=== PATIENT | female | born 1970 | race Caucasian/White ===

== ENCOUNTER 2019-10-15 11:44 | Emergency (ER) | payer OTHER, SELFPAY ==
[2019-10-15 11:56] VITALS: BP 165/110; PULSE 98; RESP 16; TEMP 37; O2SAT 99; BMI 27.4
--- NOTE | 2019-10-15 12:00 | XRR_ITS ---
PROCEDURE INFORMATION: Exam: XR Chest, 1 View Exam date and time: 10/15/2019 12:42 PM Age: 49 years old Clinical indication: Cough TECHNIQUE: Imaging protocol: XR of the chest Views: 1 view. COMPARISON: No relevant prior studies available. FINDINGS: Lungs: Unremarkable. No consolidation. Pleural space: Unremarkable. No pleural effusion. No pneumothorax. Heart/Mediastinum: Unremarkable. No cardiomegaly. Bones/joints: No acute findings. XR/XR chest 1V portable [id number] IMPRESSION: No acute findings.
--- NOTE | 2019-10-15 12:06 | W.ED.GENADLT ---
HPI - General Adult General: Chief complaint: General Medical Stated complaint: fever/sore throat/possible covid exposure Time Seen by Provider: 10/15/19 11:50 Source: patient Mode of arrival: ambulatory Limitations: no limitations History of Present Illness: HPI narrative: Ciera is a nice 49-year-old female who comes in complaining of sore throat, lip pain, cough and occasional shortness of breath. Patient has had a known direct exposure to the COVID-19 virus. She is had a fever at home as high as 101.2. She states her cough is dry nonproductive. She only rarely gets shortness of breath. Her symptoms have been going on for the past 3 to 4 days. Patient states the spot on her lip is sore and tender. It is located on the left lower lip on the lateral side. Patient states she also has a sore at the top of her mouth. Patient was exposed to herpes simplex virus as well at work. She denies any neck pain or stiffness although she has had a headache. She has no photophobia or phonophobia. She had nausea but no vomiting. She denies any diarrhea, rash or other complaints. Her exposure to the COVID-19 virus was her daughter who was exposed to someone who was confirmed to have the virus but her daughter has not not been confirmed to have the virus she only has the known exposure. Associated symptoms: Reports dyspnea; Deny chest pain, confusion, diaphoresis, headache(s), malaise, nausea, rash, palpitations, syncope or vomiting Review of Systems Const: Reports: fever(s); Denies: chills, body aches, fatigue, malaise or diaphoresis Eyes: Denies: change in vision, blurry vision, photophobia, eye discomfort, eye discharge or eye redness ENMT: Reports: throat pain and swelling of lips/tongue; Denies: odynophagia, hoarseness, ear or mastoid pain, ear discharge, change in hearing or nasal discharge Card: Denies: chest pain, palpitations, irregular heart rhythm, edema, lightheadedness, syncope, pre-syncope, dyspnea on exertion or orthopnea Resp: Reports: dyspnea and non-productive cough; Denies: productive cough, wheezing, hemoptysis or chest congestion GI: Denies: abdominal pain, nausea, vomiting, hematemesis, coffee ground emesis, heartburn, diarrhea, constipation, GI cramping, hematochezia or melena : Denies: flank pain, dysuria, urinary frequency, urinary urgency or hematuria Musc: Denies: neck pain, back pain, extremity pain, extremity swelling, joint pain, joint swelling, joint redness, joint warmth or joint stiffness Skin/Breast: Denies: rash, pruritus, erythema or skin tenderness Neuro: Denies: headache(s), numbness in extremities, weakness in extremities, sensory changes, lack of coordination, difficulty walking, dizziness, vertigo, confusion, Slurred speech present or seizure-like activity Rudolph/Lymph: Denies: easy bruising, easy bleeding, petechiae, purpura or enlarged lymph nodes All/Imm: Denies: urticaria, throat swelling, tongue swelling, facial swelling or acute wheezing PFSH ED PFSH: Medical History Hypothyroidism Surgical History Hx of breast augmentation Hx of section Family History Denies family history of Diabetes CAD (coronary artery disease) Clotting disorder Dementia Hyperlipidemia Psychiatric illness Chronic kidney disease (CKD) Suicide Anesthesia complication Bleeding disorder Family history of premature coronary artery disease Lung disease Cancer Hypertension Stroke Social History Smoking and tobacco status: never smoked Second hand smoke exposure: No Smoking risk assessment/counseling performed?: No Alcohol intake: current Alcohol intake frequency: holidays/special occasions only Desire information about alcohol rehabilitation?: No Counseling given: No Desire information about substance/drug rehabilitation?: No Counseling given: No Adopted: No Caregiver/support person: Yes Lives independently: Yes Household members: spouse Housing: House Marital status: Number of children: 2 Number of grandchildren: 2 Highest education level completed: Associate Degree: Occupational, Technical, Vocational Program service: No Current occupational status: employed Current occupational exposures/hazards: Yes Pets and animals: Yes History of recent travel: No Sexually active: Yes Current gender identity: Female Special isauro needs: No Agree to transfusion: Yes Physical Exam Const: COMMON NORMALS: no acute distress, patient oriented x3, no limitations, healthy appearing and well nourished GENERAL APPEARANCE: cooperative, well kempt and well developed HENMT: COMMON NORMALS: normocephalic, atraumatic, external ears normal, EAC's normal and Normal external nose present HEAD & SCALP: normal to inspection, normocephalic and atraumatic FACE & SINUS: normal facial exam and face symmetric NOSE: Normal external nose present and Normal nares present EXTERNAL EAR: Yes external ears normal EXTERNAL AUDITORY CANAL: EAC's normal MOUTH: Normal oral and palatal mucosa present, lip normal and tongue normal TEETH & GINGIVA: Yes other (Left lower lip with swelling and probable blister formation consistent with a herpes simplex virus type I lesion. Hard palate shows what appears to be a viral type lesion present as well.) Eye: COMMON NORMALS: Equal, round and reactive pupils present and conjunctivae normal GENERAL EYE: appearance normal, both eyes and all related structures ALIGNMENT: Yes alignment normal PERIORBITAL: periorbital findings normal EYELID: eyelids normal CONJUNCTIVA: Yes conjunctivae normal SCLERA: sclerae normal PUPIL: Yes Equal, round and reactive pupils present Neck/C-Spine: COMMON NORMALS: full ROM, no lymphadenopathy, supple, no meningeal signs and no JVD GENERAL: Yes normal visual inspection and Yes trachea midline Chest: COMMONS NORMALS: normal inspection of the chest and normal palpation of entire chest wall Resp: COMMON NORMALS: normal respiratory effort, No retractions, No use of accessory muscles and clear to auscultation bilaterally EFFORT & INSPECTION: Yes able to speak in complete sentences and Yes symmetric chest movement AUSCULTATION: clear to auscultation bilaterally, no crackles, no rales, no rhonchi and no wheezes Cardio: COMMON NORMALS: no JVD, regular rate, regular rhythm, S1 normal heart sound present and S2 normal heart sound present RATE: regular rate RHYTHM: regular rhythm HEART SOUNDS: S1 normal heart sound present, S2 normal heart sound present, no click, no gallops, no murmurs, no rubs and abnormal split S2 GI: COMMON NORMALS: Soft to palpation and No hepatosplenomegaly present PALPATION: Yes Soft to palpation, No Tenderness to palpation present (GI), No Guarding due to palpation present (GI), No Rigid due to palpation, Yes No hepatosplenomegaly present, No Hernia present, No Palpable mass present and No Pulsatile mass present : COMMON NORMALS: Yes no CVA tenderness BLADDER/KIDNEY EXAM: Yes no CVA tenderness EXTERNAL FEMALE EXAM: No Hernia present Back/Pelvis: COMMON NORMALS: no CVA tenderness, thoracic and lumbar spine normal to inspection, no thoracic nor lumbar tenderness and thoraco-lumbar ROM normal Extremity: COMMON NORMALS: normal to inspection, full ROM, capillary refill normal, no joint enlargement, no clubbing, cyanosis or edema and no calf tenderness Neuro: COMMON NORMALS: patient oriented x3, CN's II-XII intact bilaterally, moves all extremities, no focal motor deficits and no sensory deficits noted MENINGEAL SIGNS: Yes no meningeal signs SPEECH: speech normal Psych: COMMON NORMALS: mental status grossly normal, Normal thought process present, cooperative, normal affect, speech normal and activity/motor behavior normal APPEARANCE: Yes well kempt SPEECH: Yes normal speech THOUGHT PROCESS: Normal thought process present Skin: COMMON NORMALS: no rashes or lesions noted, turgor normal, no jaundice, no petechiae and no mottling GENERAL SKIN EXAM: no rashes or lesions noted and turgor normal Course Vital Signs: Vital signs: Vital Signs Temperature 98.6 F 10/15/19 11:56 Pulse Rate 85 10/15/19 14:00 Respiratory Rate 16 10/15/19 14:00 Blood Pressure 126/83 10/15/19 14:00 Pulse Oximetry 95 10/15/19 14:00 MDM - General Adult MDM Narrative: Medical decision making narrative: Patient's lab work-up was unremarkable. Her chest x-ray is clear. The only finding that can be seen is what appears as a primary herpetic outbreak on the patient's lower lip and in her mouth. There is no sign of esophagitis. Patient states she is never had a cold sore before so it is possible this is a primary herpetic infection. It will be cultured and she agrees to follow-up with Nazanin Owen for recheck. I reviewed with her signs and symptoms for which to return such as fever, vomiting, headache and worsening of her symptoms and she agrees to do so. Lab Data: Attestation: I reviewed the patient's lab results. Labs: Lab Results 10/15/19 10/15/19 10/15/19 Range/Units 12:56 12:56 12:56 WBC (4.0-10.0) 10^3/ uL RBC (4.1-5.3) 10^6/u L Hgb (11.5-15.3) g/dL Hct (37.0-47.0) % MCV (81-99) fL MCH (28.0-34.0) pg MCHC (30.0-36.0) g/dL RDW (12.1-15.1) % Plt Count (130-400) 10^3/c mm MPV (7.4-10.4) fL Neut % (Auto) % Lymph % (Auto) % [place] % (Auto) % Eos % (Auto) % Baso % (Auto) % Neut # (Auto) (1.8-7.7) 10^3/u L Lymph # (Auto) (0.8-4.8) 10^3/u L [place] # (Auto) (0.2-0.9) 10^3/u L Eos # (Auto) (0.0-0.8) 10^3/u L Baso # (Auto) (0.0-0.1) 10^3/u L Nucleated RBC % (a uto) % Nucleated RBCs # /100WBC Sodium (136-145) mmol/L Potassium (3.5-5.1) mmol/L Chloride (98-107) mmol/L Carbon Dioxide (22-29) mmol/L Anion Gap (5-19) BUN (6-20) mg/dL Creatinine (0.5-0.9) mg/dL GFR Calculation (90-130) mL/min Glucose (65-115) mg/dL Calculated Osmolal ity (285-295) mOsm/k g Lactic Acid (0.5-2.2) mmol/L Calcium (8.5-10.5) mg/dL Magnesium (1.7-2.3) mg/dL Total Bilirubin (0.15-1.2) mg/dL AST (0-32) U/L ALT (0-33) U/L Alkaline Phosphata se (35-105) IU/L Total Protein (6.6-8.7) g/dL Albumin (3.5-5.2) g/dL Globulin (1.3-4.6) g/dL Influenza Type A A g Negative (Negative) Influenza Type B A g Negative (Negative) SARS-CoV-2 Ag (Rap id) Negative (Negative) Group A Strep Rapi d Negative (Negative) 10/15/19 10/15/19 10/15/19 Range/Units 13:04 13:04 13:04 WBC 6.7 (4.0-10.0) 10^3/ uL RBC 4.21 (4.1-5.3) 10^6/u L Hgb 13.5 (11.5-15.3) g/dL Hct 40.5 (37.0-47.0) % MCV 96.2 (81-99) fL MCH 32.1 (28.0-34.0) pg MCHC 33.3 (30.0-36.0) g/dL RDW 11.9 L (12.1-15.1) % Plt Count 224 (130-400) 10^3/c mm MPV 9.2 (7.4-10.4) fL Neut % (Auto) 81.8 % Lymph % (Auto) 11.1 % [place] % (Auto) 6.4 % Eos % (Auto) 0.3 % Baso % (Auto) 0.1 % Neut # (Auto) 5.45 (1.8-7.7) 10^3/u L Lymph # (Auto) 0.7 L (0.8-4.8) 10^3/u L [place] # (Auto) 0.4 (0.2-0.9) 10^3/u L Eos # (Auto) 0.0 (0.0-0.8) 10^3/u L Baso # (Auto) 0.0 (0.0-0.1) 10^3/u L Nucleated RBC % (a uto) 0 % Nucleated RBCs # 0.0 /100WBC Sodium 138 (136-145) mmol/L Potassium 3.3 L (3.5-5.1) mmol/L Chloride 99 (98-107) mmol/L Carbon Dioxide 29 (22-29) mmol/L Anion Gap 13.3 (5-19) BUN 6 (6-20) mg/dL Creatinine 0.8 (0.5-0.9) mg/dL GFR Calculation 76.6 L (90-130) mL/min Glucose 102 (65-115) mg/dL Calculated Osmolal ity 282 L (285-295) mOsm/k g Lactic Acid 0.8 (0.5-2.2) mmol/L Calcium 8.8 (8.5-10.5) mg/dL Magnesium 1.9 (1.7-2.3) mg/dL Total Bilirubin 0.3 (0.15-1.2) mg/dL AST 29 (0-32) U/L ALT 29 (0-33) U/L Alkaline Phosphata se 58 (35-105) IU/L Total Protein 8.0 (6.6-8.7) g/dL Albumin 4.4 (3.5-5.2) g/dL Globulin 3.6 (1.3-4.6) g/dL Influenza Type A A g (Negative) Influenza Type B A g (Negative) SARS-CoV-2 Ag (Rap id) (Negative) Group A Strep Rapi d (Negative) Imaging Data^: CXR: Attestation: I personally reviewed and interpreted this imaging study as follows: My impression: No acute cardiopulmonary findings. Discharge Plan Discharge Patient Disposition: Home Clinical Impression: Herpes stomatitis Condition: Stable Prescriptions: New Valtrex 1 gram tablet 1,000 mg PO Q8H 10 Days Qty: 30 RF: 0 No Action fluoxetine [Prozac] 20 mg capsule 20 mg PO ONCE RF: 0 levothyroxine [Synthroid] 175 mcg tablet 175 mcg PO ONCE RF: 0 Discharge Orders: Discharge Order (Routine); Ordered 10/15/19 Ordered By: Tiffani Celeste Referrals: Karlene Owen APN [Primary Care Provider] - 1-3 days Discharge Diet: Advance as tolerated Discharge Activity: Increase activity as tolerated Patient Instructions: Primary Herpetic Gingivostomatitis in Children (ED) Activity Restrictions/Additional Instructions: Please return to the ER immediately for any of the signs or symptoms listed on your discharge instruction sheets, worsening/changing of your symptoms, you are not getting better as quickly as expected, or for ANY other cause or concerns. Be certain to follow-up with Nazanin Owen for the results of your viral culture. If the spots in your mouth get worse please return to the ER immediately for recheck. Return to the ER if you develop any new symptoms such as return of fever, vomiting, headache, chest pain, shortness of breath, or for any other cause for concern. Coding Level of Care Code ED Compounding Pharmacy Technician for Kenna Fatima Exam Comprehensive
[2019-10-15 13:01] VITALS: BP 132/100; PULSE 81; RESP 16; O2SAT 99
[2019-10-15] MEDS: sodium chloride 0.9% 1,000 ML 999 ML IV (13:29)
[2019-10-15 13:34] LABS: Basophils % 0.1 %; Eosinophils % 0.3 %; Hematocrit 40.5 % (37.0-47.0); Hemoglobin 13.5 g/dL (11.5-15.3); Lymphocytes # 0.7 10^3/uL (0.8-4.8); Lymphocytes % 11.1 %; Mean Corpuscular HGB Conc 33.3 g/dL (30.0-36.0); Mean Corpuscular Hemoglobin 32.1 pg (28.0-34.0); Mean Corpuscular Volume 96.2 fL (81-99); Mean Platelet Volume 9.2 fL (7.4-10.4); Monocytes # 0.4 10^3/uL (0.2-0.9); Monocytes % 6.4 %; Neutrophils # 5.45 10^3/uL (1.8-7.7); Neutrophils % 81.8 %; Nucleated Red Blood Cells % 0 %; Platelet Count 224 10^3/cmm (130-400); Red Blood Count 4.21 10^6/uL (4.1-5.3); Red Cell Distribution Width 11.9 % (12.1-15.1); White Blood Count 6.7 10^3/uL (4.0-10.0)
[2019-10-15 14:00] VITALS: BP 126/83; PULSE 85; RESP 16; O2SAT 95
[2019-10-15 14:04] LABS: Alanine Aminotransferase 29 U/L (0-33); Albumin Level 4.4 g/dL (3.5-5.2); Alkaline Phosphatase 58 IU/L (35-105); Anion Gap 13.3 (5-19); Aspartate Amino Transferase 29 U/L (0-32); Blood Urea Nitrogen 6 mg/dL (6-20); Calcium 8.8 mg/dL (8.5-10.5); Carbon Dioxide 29 mmol/L (22-29); Chloride 99 mmol/L (98-107); Globulin 3.6 g/dL (1.3-4.6); Glomerular Filtration Rate 76.6 mL/min (90-130); Glucose 102 mg/dL (65-115); Magnesium 1.9 mg/dL (1.7-2.3); Osmolality Calculated 282 mOsm/kg (285-295); Potassium 3.3 mmol/L (3.5-5.1); Sodium 138 mmol/L (136-145); Total Bilirubin 0.3 mg/dL (0.15-1.2)
[2019-10-15 14:05] LABS: Lactic Sepsis W/Reflex 0.8 mmol/L (0.5-2.2)
[2019-10-15 14:50] LABS: Rapid Strep A Test Negative (Negative)
[2019-10-15 14:58] LABS: SARS Covid-2 Antigen Negative (Negative)
[2019-10-15 15:18] LABS: Influenza A by IFA Negative (Negative); Influenza B by IFA Negative (Negative)
[2019-10-15 15:41] VITALS: BP 140/89; PULSE 92; RESP 17; O2SAT 99
== END 2019-10-15 15:41 | disposition home or self-care (01) ==
PROVIDERS: Emergency Provider Emergency Medicine; PCP Nurse Practitioner Family
DX: B00.2 Herpesviral gingivostomatitis and pharyngotonsillitis (principal)
CPT/HCPCS: 12345; 36415; 71045; 80053; 83605; 83735; 85025; 87040; 87081; 87426; 87804; 87880; 96360; 96361; 99283; J7030

== ENCOUNTER → 2019-10-18 14:08 | Outpatient (BNVA) | payer OTHER, SELFPAY | PROVIDERS: PCP Nurse Practitioner Family; Referring Provider Nurse Practitioner Family; Visit Provider Podiatrist Foot & Ankle Surgery | DX: M79.672 Pain in left foot (principal) | CPT/HCPCS: 73630 ==

== ENCOUNTER 2019-10-26 10:05 | Outpatient (CLI) | payer OTHER, SELFPAY ==
--- NOTE | 2019-10-26 10:12 | MM_ITS ---
WS: [id number] BILATERAL SCREENING MAMMOGRAM WITH OMAR DISPLACEMENT VIEWS. CAD PERFORMED. HISTORY: SCREENING COMPARISON: 09/09/2017 and 04/28/2013 Bilateral craniocaudal and mediolateral like views are performed. Omar displacement views in CC and MLO projection also performed. Breasts composition: The breasts are heterogeneously dense, which may obscure small masses. Partiall y calcified breast implants. No collapse of the implants. No suspicious mass or calcification identif ied within either breast. MM/[place] [id number] IMPRESSION: BI-RADS: 2-Benign FOLLOW-UP: 1 Year Follow-up
== END 2019-10-26 10:06 | disposition home or self-care (01) ==
LOC: RADSHAW 10:12
PROVIDERS: PCP Nurse Practitioner Family; Visit Provider Nurse Practitioner Family
DX: Z12.31 Encounter for screening mammogram for malignant neoplasm of breast (principal)
CPT/HCPCS: 77067

== ENCOUNTER → 2019-11-15 11:26 | Outpatient (BNVA) | payer OTHER, SELFPAY | PROVIDERS: PCP Nurse Practitioner Family; Visit Provider Nurse Practitioner | DX: R35.0 Frequency of micturition (principal); N39.0 Urinary tract infection, site not specified | CPT/HCPCS: 81000 ==

== ENCOUNTER 2023-06-21 03:09 | Emergency (ER) | payer OTHER, SELFPAY ==
[2023-06-21 03:26] VITALS: BP 144/97; PULSE 69; RESP 20; TEMP 37.1; O2SAT 99; BMI 26.6
[2023-06-21 05:02] LABS: Basophils % 0.4 %; Eosinophils # 0.2 10^3/uL (0.0-0.8); Eosinophils % 2.7 %; Hematocrit 35.5 % (36-47); Lymphocytes # 2.1 10^3/uL (0.8-4.8); Lymphocytes % 28.2 %; Mean Corpuscular HGB Conc 33.8 g/dL (30-55); Mean Corpuscular Hemoglobin 31.7 pg (27-33); Mean Corpuscular Volume 93.7 fl (85-98); Monocytes # 0.6 10^3/uL (0.2-0.9); Monocytes % 8.4 %; Neutrophils # 4.51 10^3/uL (1.8-7.7); Nucleated Red Blood Cells % 0 %; Platelet Count 348 10^3/cmm (157-399); Red Blood Count 3.79 10^6/uL (3.85-5.65); Red Cell Distribution Width 12.1 % (12.1-15.1); White Blood Count 7.51 10^3/uL (3.29-11.43)
[2023-06-21 05:18] LABS: Alanine Aminotransferase 24 U/L (0-33); Alkaline Phosphatase 79 U/L (35-105); Anion Gap 14.6 (5-19); Aspartate Amino Transferase 24 U/L (0-32); Blood Urea Nitrogen 15 mg/dL (6-20); Calcium 9.3 mg/dL (8.5-10.5); Carbon Dioxide 24 mmol/L (22-29); Chloride 102 mmol/L (98-107); Globulin 3.1 g/dL (1.3-4.6); Glucose 99 mg/dL (65-115); Osmolality Calculated 285 mOsm/kg (285-295); Potassium 3.6 mmol/L (3.5-5.1); Sodium 137 mmol/L (136-145); Total Bilirubin 0.2 mg/dL (0.15-1.2); Total Protein 7.1 g/dL (6.6-8.7)
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
[2023-06-21 05:36] LABS: Add Urine Microscopic? NO; Bilirubin Urine Neg (Negative); Blood Urine Neg (Negative); Charge for UA Resulting for Rev; Glucose Urine UA Norm (Normal); Ketones Urine Negative (Negative); Leukocyte Esterase Urine Negative (Negative); Nitrate Urine Negative (Negative); Protein Urine Neg (Negative); Urine Appearance Clear (CLEAR); Urine Color Light yellow (Yellow); Urobilinogen Urine Neg (Negative); pH Urine 7 (5-7)
== END 2023-06-21 05:45 | disposition home or self-care (01) ==
PROVIDERS: Emergency Provider Emergency Medicine; PCP Nurse Practitioner Family
DX: S30.1XXA Contusion of abdominal wall, initial encounter (principal); Y04.2XXA Assault by strike against or bumped into by another person, initial encounter; Y92.239 Unspecified place in hospital as the place of occurrence of the external cause; Y99.0 Civilian activity done for income or pay
CPT/HCPCS: 80053; 81003; 85025; 99283

== ENCOUNTER 2023-10-17 00:57 | Emergency (ER) | payer OTHER, SELFPAY ==
[2023-10-17 01:26] VITALS: BP 125/82; PULSE 74; RESP 18; BMI 24.0
[2023-10-17 01:35] VITALS: BP 118/72; PULSE 79; RESP 16; O2SAT 100
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
[2023-10-17 02:18] VITALS: RESP 16; O2SAT 98
[2023-10-17] MEDS: oxyCODONE-APAP 5-325 mg Tablet 1 TAB PO (02:18)
[2023-10-17 03:39] VITALS: BP 125/82; PULSE 80; RESP 16; O2SAT 99
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
== END 2023-10-17 03:40 | disposition home or self-care (01) ==
PROVIDERS: Emergency Provider Emergency Medicine; PCP Nurse Practitioner Family
DX: S00.83XA Contusion of other part of head, initial encounter (principal); S63.602A Unspecified sprain of left thumb, initial encounter; Z79.85 Long-term (current) use of injectable non-insulin antidiabetic drugs; V86.95XA Unspecified occupant of 3- or 4- wheeled all-terrain vehicle (ATV) injured in nontraffic accident, initial encounter; Y92.89 Other specified places as the place of occurrence of the external cause
CPT/HCPCS: 70450; 70486; 72125; 73130; 99284